=== PATIENT | female | born 1950 | race Caucasian/White ===

== ENCOUNTER 2020-04-18 04:55 | Day surgery (SDC) | payer OTHER, BC ==
[2020-04-17 16:04] VITALS: BMI 32.5
[2020-04-18] MEDS ORDERED: MIDAZOLAM HCL 2 MG/2 ML SINGLE DOSE VIAL ONE (13:40)
[2020-04-18] MEDS ORDERED: LIDOCAINE HCL/PF 2% SDV 5ML VIAL ONE (13:40)
[2020-04-18] MEDS ORDERED: PROPOFOL 20 ML ONE (13:40)
[2020-04-18] MEDS ORDERED: DEXAMETHASONE SOD PHOSPHATE 4 MG/1 ML VIAL ONE (13:40)
[2020-04-18] MEDS ORDERED: oxyCODONE HCL 5 MG TABLET PO PRN (14:20)
[2020-04-18] MEDS ORDERED: ACETAMINOPHEN 325 MG TABLET (FP) PO PRN (14:20)
[2020-04-18] MEDS ORDERED: IBUPROFEN 400 MG TABLET (FP) PO PRN (14:20)
[2020-04-18 15:46] VITALS: TEMP 98
[2020-04-18 16:27] VITALS: BP 132/70; PULSE 62
== END 2020-04-18 16:37 | disposition home or self-care (01) ==
LOC: JASU-SURG 04:55
PROVIDERS: ATTEND Specialist
PROC: 0UDB7ZX Extraction of Endometrium, Via Natural or Artificial Opening, Diagnostic (ICD-10-PCS; principal; 2020-04-18 12:30)
PROC: 0UJD8ZZ Inspection of Uterus and Cervix, Via Natural or Artificial Opening Endoscopic (ICD-10-PCS; 2020-04-18 12:30)
DX: N95.0 Postmenopausal bleeding (principal)
CPT/HCPCS: 88305-TC; 94760